=== PATIENT | female | born 1965 | race Caucasian/White ===

== ENCOUNTER 2018-05-15 14:04 | Emergency (ER) | payer OTHER ==
[~2018-05-15] VITALS: Ht 167.6 cm; Wt 83.9 kg
[2018-05-15] MEDS ORDERED: VENTOLIN HFA18 GM (14:36)
[2018-05-15] MEDS ORDERED: HYDROCHLOROTHIA25 MG (14:36)
== END 2018-05-15 18:55 | disposition home or self-care (01) ==
LOC: ER 14:04
DX: S40.011A Contusion of right shoulder, initial encounter (principal); S20.222A Contusion of left back wall of thorax, initial encounter; W22.8XXA Striking against or struck by other objects, initial encounter; Y93.89 Activity, other specified; Y92.59 Other trade areas as the place of occurrence of the external cause; Y99.8 Other external cause status